=== PATIENT | male | born 1990 | race Caucasian/White ===

== ENCOUNTER 2022-09-15 13:27 | Emergency (ER) | payer OTHER, SELFPAY ==
[2022-09-15 13:35] VITALS: BP 128/76; PULSE 60; RESP 14; TEMP 36.8; O2SAT 96; BMI 33.0
--- NOTE | 2022-09-15 13:46 | CRLHL7_ITS ---
For Patients: As a result of the Century Cures Act, medical imaging exams and procedure reports are released immediately into your electronic medical record. You may view this report before your referring provider. If you have questions, please contact your health care provider. Indication: Cough, left lower lobe crackles. Technique: Chest 2 views Comparison: None Findings/Impression: Cardiovascular and mediastinum: Heart size and vasculature are normal in caliber and appearance. Mediastinum is within normal limits. Lungs and pleural spaces: No pleural effusion or pneumothorax. Patchy consolidation throughout the left lower lobe consistent with bronchopneumonia. Bones and soft tissues: No significant findings. Dictated by Davi Quintanilla MD @ 09/15/2022 2:56:36 PM (Electronically Signed)
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
[2022-09-15 14:33] LABS: PCR FLU A Negative PCR FLU A (Negative); PCR FLU B Negative PCR FLU B (Negative); PCR RSV Negative PCR RSV (Negative)
[2022-09-15 14:50] LABS: SARS PCR* Negative SARS-CoV-2 (Negative)
[2022-09-15 14:53] VITALS: BP 115/68; PULSE 62; RESP 18; TEMP 37.2; O2SAT 96
== END 2022-09-15 15:40 | disposition home or self-care (01) ==
PROVIDERS: Emergency Provider Family Medicine
DX: J18.9 Pneumonia, unspecified organism (principal)
CPT/HCPCS: 71046; 87631; 99284

== ENCOUNTER 2024-11-15 09:47 | Outpatient (RCR) | payer OTHER, SELFPAY | END 2025-03-15 23:59 | disposition home or self-care (01) | PROVIDERS: Visit Provider Student in an Organized Health Care Education/Training Program | DX: M25.561 Pain in right knee (principal); M25.552 Pain in left hip; M25.571 Pain in right ankle and joints of right foot; G89.29 Other chronic pain; M70.62 Trochanteric bursitis, left hip; M76.71 Peroneal tendinitis, right leg; Z51.89 Encounter for other specified aftercare | CPT/HCPCS: 97110; 97161 ==